=== PATIENT | male | born 1965 | race Two or more races ===

== ENCOUNTER 2017-07-20 23:19 | Emergency (ER) | payer OTHER ==
[~2017-07-20] VITALS: Ht 180.3 cm; Wt 86.2 kg
[2017-07-21 00:51] LABS: Basophils # (auto) 0.1 uL; Basophils % (auto) 1.2 % (0.0-2.0); Eosinophils # (auto) 0.4 uL; Eosinophils % (auto) 3.9 % (0.0-7.0); Hematocrit 46.5 % (41.0-53.0); Hemoglobin 16.1 g/dL (13.5-17.5); Lymphocytes # (auto) 3.5 uL; Lymphocytes % (auto) 32.2 % (10.0-50.0); Mean Corpuscular Hemoglobin 32.1 pg (28.0-32.0); Mean Corpuscular Hgb Conc. 34.6 g/dL (32.0-36.0); Mean Corpuscular Volume 92.7 fL (80.0-100.0); Monocytes % (auto) 9.3 % (0.0-12.0); Neutrophils # (auto) 5.8 uL; Neutrophils % (auto) 53.4 % (37.0-80.0); Nucleated Red Blood Cells % 0.1 %; Platelet Count (auto) 271 10^3/uL (140-450); Red Blood Cells 5.02 10^6/uL (4.5-5.90); White Blood Cell 10.8 10^3/uL (4.4-10.8)
[2017-07-21 01:07] LABS: Alanine Aminotransferase 36 U/L (16-61); Albumin 4.1 g/dL (3.4-5.0); Anion Gap 7 (5-15); Aspartate Aminotransferase 22 U/L (15-37); BUN/Creatinine Ratio 10.5; Blood Urea Nitrogen 9 mg/dL (7-18); Calcium 8.5 mg/dL (8.5-10.1); Carbon Dioxide 23 mmol/L (21-32); Chloride 108 mmol/L (98-107); GFR African American 120 mL/min; GFR Non-African American 99 mL/min; Glucose 102 mg/dL (74-106); Potassium 3.7 mmol/L (3.5-5.1); Sodium 138 mmol/L (136-145)
[2017-07-21 01:12] LABS: Alkaline Phosphatase 145 U/L (45-117); Bilirubin, Total 0.4 mg/dL (0.2-1.0); Total Protein 7.6 g/dL (6.4-8.2)
[2017-07-21] MEDS ORDERED: NALBUPHINE HCL 10 MG/1ml INJECTION IM ONE (02:45)
[2017-07-21 05:23] VITALS: BP 127/73
== END 2017-07-21 05:59 | disposition home or self-care (01) ==
LOC: ER 23:24
DX: S39.012A Strain of muscle, fascia and tendon of lower back, initial encounter (principal); M54.17 Radiculopathy, lumbosacral region; M47.897 Other spondylosis, lumbosacral region; X58.XXXA Exposure to other specified factors, initial encounter; Y93.89 Activity, other specified; Y99.8 Other external cause status; Y92.89 Other specified places as the place of occurrence of the external cause
CPT/HCPCS: 36415; 71045; 72131; 80053; 83880; 84484; 85025; 93005; 96372; 99285; J2300

== ENCOUNTER 2017-07-31 23:58 | Emergency (ER) | payer OTHER ==
[~2017-07-31] VITALS: Ht 180.3 cm; Wt 89.5 kg
[2017-08-01 00:20] VITALS: BP 138/71
== END 2017-08-01 01:40 | disposition left against medical advice (07) ==
LOC: ER 23:58
DX: R51 Headache (principal); Z53.21 Procedure and treatment not carried out due to patient leaving prior to being seen by health care provider
CPT/HCPCS: 70450

== ENCOUNTER 2017-08-03 12:40 | Emergency (ER) | payer OTHER ==
[~2017-08-03] VITALS: Ht 180.3 cm; Wt 86.2 kg
[2017-08-03 12:56] VITALS: BP 105/82
== END 2017-08-03 14:54 | disposition home or self-care (01) ==
LOC: ER 12:40
DX: G89.29 Other chronic pain (principal); M54.5 Low back pain; Z76.0 Encounter for issue of repeat prescription

== ENCOUNTER 2017-08-05 13:34 | Emergency (ER) | payer OTHER ==
[~2017-08-05] VITALS: Ht 180.3 cm; Wt 86.2 kg
[2017-08-05 13:46] VITALS: BP 123/81
== END 2017-08-05 15:50 | disposition left against medical advice (07) ==
LOC: ER 13:34
DX: M54.2 Cervicalgia (principal); Z53.21 Procedure and treatment not carried out due to patient leaving prior to being seen by health care provider

== ENCOUNTER 2024-10-27 23:30 | Emergency (ER) | payer MEDICAID, OTHER ==
[~2024-10-27] VITALS: Ht 180.3 cm; Wt 72.0 kg
[2024-10-27 23:38] VITALS: BP 130/87; PULSE 91; RESP 18; TEMP 98.5; O2SAT 98
--- NOTE | 2024-10-28 01:24 | ED.PDOC ---
History of Present Illness HPI Comments 59 year old male presents to the ED with a chief compliant of colostomy bag leakage onset today. Patient states he noticed colostomy bag is leaking, does not have supplies to change bag at home. Patient is currently having issues with insurance and caser in to obtain supplies. Patient has no further com plaints. Denies abdominal pain, nausea, vomiting, chest pain, shortness of breath, fevers, chills, dysuria, hematuria. No other symptoms or modifying factors present at this time. Chief Complaint: Tube Replacement Time Seen by MD: :15 Reviewed Notes: Medications, Allergies Information Source: Patient Mode of Arrival: Ambulatory Severity: Moderate Timing: Hours Duration: Since onset Prehospital treatment: None Past Medical History PAST MEDICAL HISTORY: Unknown Surgical History: Unknown Family History Family History: Reviewed,noncontributory to illness, No family hx of Cancer, No family hx of DM, No family hx of Heart jack, No family hx of HTN, No family hx ofKidney jack, No family hx of Liver jack, No family hx of Lung jack, No family hx of Stroke Social History Smoker: Non-Smoker Alcohol: Denies ETOH Use Drugs: Denies Drug Use Lives In: Home Constitutional: denies: chills, diaphoresis, fatigue, fever, malaise, sweats, weakness, others EENTM: denies: blurred vision, double vision, ear bleeding, ear discharge, ear drainage, ear pain, ear ringing, eye pain, eye redness, hearing loss, mouth p ain, mouth swelling, nasal discharge, nose bleeding, nose congestion, nose pain, photophobia, tearing, throat pain, throat swelling, voice changes, others Respiratory: denies: cough, hemoptysis, orthopnea, SOB at rest, shortness of br eath, SOB with excertion, stridor, wheezing, others Cardiovascular: denies: chest pain, dizzy spells, diaphoresis, Dyspnea on exertion, edema, irregular heart beat, left arm pain, lightheadedness, palpitations, PND, syncope, others Gastrointestinal: reports: others (colostomy bag leakage); denies: abdomen distended, abdominal pain, blood streaked bowels, constipated, diarrhea, dysphagia, difficulty swallowing, hematemesis, melena, nausea, poor appetite, poor fluid intake, rectal bleeding, rectal pain, vomiting Genitourinary: denies: burning, dysuria, flank pain, frequency, hematuria, incontinence, penile discharge, penile sore, pain, testicle pain, testicle swelling, urgency, others Neurological: denies: dizziness, fainting, headache, left sided numbness, left sided weakness, numbness, paresthesia, pre-existing deficit, right sided numbness, right sided weakness, seizure, speech problems, tingling, tremors, weakness, others Musculoskeletal: denies: back pain, gout, joint pain, joint swelling, muscle pain, muscle stiffness, neck pain, others Integumetry: denies: bruises, change in color, change in hair/nails, dryness, laceration, lesions, lumps, rash, wounds, others Allergic/Immunocompromised: denies: Difficulty Healing, Frequent Infections, Hives, Itching, others Hematologic/Lymphatic: denies: anemia, blood clots, easy bleeding, easy bruising, swollen glands, others Endocrine: denies: excessive hunger, excessive sweating, excessive thirst, excessive urination, flushing, intolerance to cold, intolerance to heat, unexplained weight gain, unexplained weight loss, others Psychiatric: denies: anxiety, bipolar disorder, depression, hopeless, panic disorder, schizophrenia, sleepless, suicidal, others All Other Systems: Reviewed and Negative Physical Exam General Appearance: Normal HEENT: Normal ENT Inspection, Pharynx Normal, TMs Normal Neck: Full Range of Motion, Non-Tender, Normal, Normal Inspection Respiratory: Chest Non-Tender, Lungs Clear, No Accessory Muscle Use, No Respiratory Distress, Normal Breath Sounds Cardiovascular: No Edema, No JVD, No Murmur, No Gallop, Normal Peripheral Pulses, Regular Rate/Rhythm Breast Exam: Deferred Gastrointestinal: No Organomegaly, Non Tender, No Pulsatile Mass, Normal Bowel Sounds, Soft Genitalia: Deferred Pelvic: Deferred Rectal: Deferred Extremities: No calf tenderness, Normal capillary refill, Normal inspection, Normal range of motion, Non-tender, No pedal edema Musculoskeletal : Apperance: Normal Neurologic: Alert, butt trimmer II-XII nml as Tested, No Motor Deficits, Normal Affect, Normal Mood, No Sensory Deficits Cerebellar Function: Normal Reflexes: Normal Skin: Dry, Normal Color, Warm Lymphatic: No Adenopathy Was a procedure done? Was a procedure done?: No Differential Dx Considerations may include: ostomy supplies X-Ray, Labs, Meds, VS Vital Signs Date Time Temp Pulse Resp B/P (MAP) Pulse Ox O2 Delivery O2 Flow Rate FiO2 10/27/24 23:38 98.5 91 18 130/87 (101) 98 98.5 Time of 1ST Reevaluation: 01:45 Reevaluation 1ST: Unchanged Patient Education/Counseling: Diagnosis, Treatment, Prognosis Family Education/Counseling: No Family Present SEPSIS Sepsis Screen Date sepsis recognized/suspect: Oct 27, 2024 Time Sepsis recognized/suspect: 2336 Recent Procedure: No On Antibiotic Therapy: No Respiratory Rate >20: No Heart Rate >90: No Temp<36 C (96.8 F) or >38.3 C: No SBP <90 or MAP <65 mmHG: No New Acute Mental Status Change: No Is the patient on CPAP, BIPAP,: No Vital Signs Date Time Temp Pulse Resp B/P (MAP) Pulse Ox O2 Delivery O2 Flow Rate FiO2 10/27/24 23:38 98.5 91 18 130/87 (101) 98 98.5 Departure 1 Departure Time of Disposition: 01:36 (Patient with the palpitations. EKGs in his tachycardia, chest x-ray is benign, labs are benign) Impression: Primary Impression: Palpitations Disposition: ADMITTED INPATIENT Admit to: Med Surg Condition: Serious Critical Care Note Critical Care Time?: No Stability Stability form required: No Heart Score Heart Score: Heart Score Response (Comments) Value History Slightly Suspicious 0 EKG Normal 0 Age 45-64 1 Risk Factors >3 or Hx ASHD 2 Troponin Normal limit 0 Total 3 I personally scribed for JOVANY LOO MD ([email or web address]) on 10/28/24 at 01:24. Electronically submitted by Laureen Tamayo ([email or web address]). JOVANY LOO MD Oct 28, 2024 01:24
--- NOTE | 2024-10-28 01:38 | ED.PDOC ---
Departure 1 Departure Time of Disposition: 01:37 (Patient's previous chart diagnosis was entered and there. Patient's supplies were refilled. We will discharge patient home) Impression: Primary Impression: Encounter for ostomy care education Disposition: 01 HOME / SELF CARE / HOMELESS Condition: Stable Additional Instructions: It is important follow up with the regular doctor regarding your ostomy care. JOVANY LOO MD Oct 28, 2024 01:38
== END 2024-10-28 02:38 | disposition home or self-care (01) ==
LOC: ER 23:30 → EDUNIT# 23:30 → EDBD 23:30 → ER 10-28 02:38
DX: R00.2 Palpitations (principal); Z93.3 Colostomy status

== ENCOUNTER 2025-01-30 10:31 | Emergency (ER) | payer MEDICAID, OTHER ==
[~2025-01-30] VITALS: Ht 175.3 cm; Wt 75.0 kg
[2025-01-30 10:46] VITALS: BP 130/86; PULSE 90; RESP 22; TEMP 98.6; O2SAT 99
[2025-01-30] MEDS ORDERED: IOHEXOL 300 MG/ML 100ML BOTTLE IJ ONE (18:01)
== END 2025-01-30 12:11 | disposition left against medical advice (07) ==
LOC: EDBD 10:31 → ER 10:31
DX: R10.9 Unspecified abdominal pain (principal); Z79.899 Other long term (current) drug therapy; Z53.21 Procedure and treatment not carried out due to patient leaving prior to being seen by health care provider

== ENCOUNTER 2025-01-30 13:51 | Emergency (ER) | payer MEDICAID ==
[~2025-01-30] VITALS: Ht 180.3 cm; Wt 100.0 kg
--- NOTE | 2025-01-30 15:56 | ED.PDOC ---
GI ASSESSMENT HPI Comments This is a 59 year-old homeless male who presents to the ED via wheelchair with a chief complaint of abdominal pain at colostomy and urostomy bag site with associated symptoms of N/V for x5 days. Patient is dirty and not well kempt in his having difficulties being on the street. Patient's site bandages were all dirty and compromised. Patient reports having a reversal appointment scheduled in a week or two. Patient has no further complaints at this time and otherwise denies diarrhea, constipation, dysuria, fever, or hematemesis. Vital signs were stable at arrival. Chief Complaint: Abdominal Pain Time Seen by MD: 15:42 Primary Care Provider: MIRA JACKSON Reviewed Notes: Nurses Notes, Medications, Allergies Allergies: Coded Allergies: NO KNOWN ALLERGIES (Unverified , 08/24/09) Information Source: Patient Mode of Arrival: Wheelchair Timing: Days Duration: Since onset Prehospital treatment: None Quality: Aching, Cramping, Sharp Vomitus: Bilious, Food Particles, Soft, Watery Severity: Moderate Recent: None Recent Hx of: Other (Patient has a urostomy and colostomy in place.) Associated sign and symptoms: Nausea, Vomiting, Abdominal Pain Past Medical History PAST MEDICAL HISTORY: Unknown Surgical History (Other): Colostomy and urostomy Family History Family History: Reviewed,noncontributory to illness, No family hx of Cancer, No family hx of DM, No family hx of Heart jack, No family hx of HTN, No family hx ofKidney jack, No family hx of Liver jack, No family hx of Lung jack, No family hx of Stroke Social History Smoker: Non-Smoker Alcohol: Heavy Drugs: Marijuana Lives In: Homeless Constitutional: denies: chills, diaphoresis, fatigue, fever, malaise, sweats, weakness, others EENTM: denies: blurred vision, double vision, ear bleeding, ear discharge, ear drainage, ear pain, ear ringing, eye pain, eye redness, hearing loss, mouth pain, mouth swelling, nasal discharge, nose bleeding, nose congestion, nose pain, photophobia, tearing, throat pain, throat swelling, voice changes, others Respiratory: denies: cough, hemoptysis, orthopnea, SOB at rest, shortness of breath, SOB with excertion, stridor, wheezing, others Cardiovascular: denies: chest pain, dizzy spells, diaphoresis, Dyspnea on exertion, edema, irregular heart beat, left arm pain, lightheadedness, palpitations, PND, syncope, others Gastrointestinal: reports: abdominal pain, nausea, vomiting; denies: abdomen distended, blood streaked bowels, constipated, diarrhea, dysphagia, difficulty swallowing, hematemesis, melena, poor appetite, poor fluid intake, rectal bleeding, rectal pain, others Genitourinary: denies: burning, dysuria, flank pain, frequency, hematuria, incontinence, penile discharge, penile sore, pain, testicle pain, testicle swelling, urgency, others Neurological: denies: dizziness, fainting, headache, left sided numbness, left sided weakness, numbness, paresthesia, pre-existing deficit, right sided numbness, right sided weakness, seizure, speech problems, tingling, tremors, weakness, others Musculoskeletal: denies: back pain, gout, joint pain, joint swelling, muscle pain, muscle stiffness, neck pain, others Integumetry: denies: bruises, change in color, change in hair/nails, dryness, laceration, lesions, lumps, rash, wounds, others Allergic/Immunocompromised: denies: Difficulty Healing, Frequent Infections, Hives, Itching, others Hematologic/Lymphatic: denies: anemia, blood clots, easy bleeding, easy bruising, swollen glands, others Endocrine: denies: excessive hunger, excessive sweating, excessive thirst, excessive urination, flushing, intolerance to cold, intolerance to heat, unexplained weight gain, unexplained weight loss, others Psychiatric: denies: anxiety, bipolar disorder, depression, hopeless, panic disorder, schizophrenia, sleepless, suicidal, others All Other Systems: Reviewed and Negative Physical Exam General Appearance: Moderate Distress (Due to abdominal pain concerns.), Normal HEENT: Normal ENT Inspection, Pharynx Normal, TMs Normal Neck: Full Range of Motion, Non-Tender, Normal, Normal Inspection Respiratory: Chest Non-Tender, Lungs Clear, No Accessory Muscle Use, No Respiratory Distress, Normal Breath Sounds Cardiovascular: No Edema, No JVD, No Murmur, No Gallop, Normal Peripheral Pulses, Regular Rate/Rhythm Breast Exam: Deferred Gastrointestinal: Other (Patient is a right-sided urostomy site that appears inflamed. Left-sided lower quadrant colostomy reveals some mild erythema and edema. Patient states reduced stool burden.) Genitalia: Deferred Pelvic: Deferred Rectal: Deferred Extremities: No calf tenderness, Normal capillary refill, Non-tender Neurologic: Alert Cerebellar Function: NOT DONE Reflexes: NOT DONE Skin: Dry, Normal Color, Warm Lymphatic: No Adenopathy Was a procedure done? Was a procedure done?: No GI differential Dx Differential Diagnosis: Bowel Obstruction, Constipation, Gastritis/PUD, Gastroenteritis, Inflammatory BD, Dehydration, Bacterial, Parasitic, Viral X-Ray, Labs, Meds, VS Vital Signs Date Time Temp Pulse Resp B/P (MAP) Pulse Ox O2 Delivery O2 Flow Rate FiO2 01/30/25 13:56 97.9 97 18 108/52 98 97.9 Lab Test 01/30/25 15:58 01/30/25 15:43 Range/Units White Blood Count 7.6 4.4-10.8 10^3/uL Red Blood Count 4.32 L 4.5-5.90 10^6/uL Hemoglobin 11.9 L 13.5-17.5 g/dL Hematocrit 36.2 L 41.0-53.0 % Mean Corpuscular Volume 83.7 80.0-100.0 fL Mean Corpuscular Hemoglobin 27.6 L 28.0-32.0 pg Mean Corpuscular Hemoglobin Concent 33.0 32.0-36.0 g/dL Red Cell Distribution Width 19.4 H 11.8-14.3 % Platelet Count 387 140-450 10^3/uL Mean Platelet Volume 7.8 6.9-10.8 fL Neutrophils (%) (Auto) 67.9 37.0-80.0 % Lymphocytes (%) (Auto) 20.7 10.0-50.0 % Monocytes (%) (Auto) 8.6 0.0-12.0 % Eosinophils (%) (Auto) 1.8 0.0-7.0 % Basophils (%) (Auto) 1.0 0.0-2.0 % Neutrophils # (Auto) 5.2 1.6-8.6 10 ^3/uL Lymphocytes # (Auto) 1.6 0.4-5.4 10 ^3/uL Monocytes # (Auto) 0.7 0-1.3 10 ^3/uL Eosinophils # (Auto) 0.1 0-0.8 10 ^3/uL Basophils # (Auto) 0.1 0-0.2 10 ^3/uL Nucleated Red Blood Cells 0.0 % Sodium Level 138 136-145 mmol/L Potassium Level 3.5 3.5-5.1 mmol/L Chloride Level 104 98-107 mmol/L Carbon Dioxide Level 23 20-31 mmol/L Anion Gap 11 5-15 Blood Urea Nitrogen 10 9-23 mg/dL Creatinine 0.96 0.700-1.30 mg/dL Glomerular Filtration Rate Calc 90 >90 mL/min BUN/Creatinine Ratio 10.4 10.0-20.0 Serum Glucose 104 74-106 mg/dL Calcium Level 9.4 8.7-10.4 mg/dL Lipase 35 12-53 U/L Urine Color Yellow Yellow Urine Clarity Clear Clear Urine pH 6.5 5.0-9.0 Urine Specific [place] > 1.050 H 1.001-1.035 Urine Protein 1+ H Negative Urine Ketones Negative Negative Urine Blood Negative Negative /uL Urine Nitrite Negative Negative Urine Bilirubin Negative Negative Urine Urobilinogen Normal Negative mg/dL Urine Leukocyte Esterase Negative Negative /uL Urine RBC 1 0 - 3 /hpf Urine Microscopic WBC 1 0-3 /HPF Urine Squamous Epithelial Cells Few <5 /hpf Urine Bacteria None seen None Seen /hpf Urine Mucus Few None Seen Urine Glucose Normal Normal mg/dL Current Medications Medications (Trade) Dose Ordered Sig/Shabana Route Start Time Stop Time Status Last Admin Ondansetron HCl (Zofran) 4 mg ONCE ONCE IV 01/30/25 15:45 01/30/25 15:46 DC 01/30/25 17:33 Acetaminophen/ Hydrocodone Bitart ([place] 10/325MG Tab) 1 tab ONCE ONCE PO 01/30/25 15:45 01/30/25 15:46 DC 01/30/25 17:[address] [address] Ph: [phone] DIAGNOSTIC IMAGING Diagnostic Imaging Report : [id number] Signed PATIENT: RIC SHARMA,GLENROYOACCT: [id number] UNIT: [id number] : 1965 LOC: ER ROOM / BED: / AGE / SEX: 59 / M ADM STATUS: REG ER SERVICE [id number] ORDERING PHYSICIAN: MARCELINO LANCASTER PAC PROCEDURE(s): ABPLIV - CT AB PEL WITH IV CON ONLY REASON: Evaluate urostomy and colostomy. ORDER NUMBER(s): [id number], ACCESSION NUMBER(s): [id number] EXAM: CT CT AB PEL WITH IV CON ONLY HISTORY: Evaluate urostomy and colostomy. TECHNIQUE: Volumetric multidetector CT images of the abdomen and pelvis were obtained after the administration of intravenous contrast. All CT scans at this facility use dose modulation, iterative reconstruction, and/or weight based dosing when appropriate to reduce radiation dose to as low as reasonably achievable. COMPARISON: CT ABD/PEL W - IV on DOS: 05/10/24 FINDINGS: [LOWER CHEST]: The partially visualized lung bases are clear without a pleural effusion. [LIVER]: Small focal, well circumscribed hepatic hypodensities, which are nonspecific but statistically most likely represent small hepatic cysts. [GALLBLADDER AND BILIARY TREE]: Right anterior pigtail drainage catheter in place with the adjacent persistent small possible fluid collection measuring 2.2 x 3.3 cm. Pigtail is located in the gallbladder fossa. [SPLEEN]: Unremarkable. [PANCREAS]: Unremarkable. [ADRENAL GLANDS]: Unremarkable [KIDNEYS]: No hydronephrosis. No nephroureterolithiasis. No suspicious focal lesion. [BLADDER]: Tube [REPRODUCTIVE ORGANS]: Unremarkable. [BOWEL/MESENTERY]: Stomach is decompressed. Left lower quadrant ostomy. Inconspicuous air-fluid levels in bowel loops in the lower mid abdomen to right lower quadrant with air-fluid levels measuring up to 3.6 cm. Correlate for ileus versus partial bowel obstruction minimal stool burden. [ASCITES]: Absent [LYMPHADENOPATHY]: No pathologically enlarged lymph nodes by CT size criteria [VASCULATURE]: No aneurysmal dilatation. [ABDOMINAL WALL]: Unremarkable. [MUSCULOSKELETAL]: Nondisplaced left L3 transverse process fracture. Multifocal degenerative change of the visualized spine. posterior decompression L4-L5 with intervertebral disc spacers. Inconspicuous subsidence into the inferior endplate of L4 and superior endplate of L5. IMPRESSION: 1. Inconspicuous air-fluid levels in bowel loops in the lower mid abdomen to right lower quadrant with distal small bowel loops measuring up to 3.6 cm. Correlate for ileus versus partial bowel obstruction. 2. Nondisplaced left L3 transverse process fracture. 3. Left lower quadrant ostomy appears intact. 4. Right anterior pigtail drainage catheter in place with the adjacent persistent small possible fluid collection measuring 2.2 x 3.3 cm. 5. Poor evaluation of the the reported urostomy. Consider further evaluation with CT urogram. X-Ray, Labs, Meds, VS Comment All studies performed the ED were evaluated by me personally. Serum laboratories were remarkable for a mild anemia. Urinalysis was unremarkable for any systemic concerns. CT of the abdomen was revealing for probable small bowel obstruction. Imaging findings along with the patient discussion is odalis cative of an SBO. Patient will be admitted for pain management as well as long- term management of GI concerns. Images Reviewed?: Images reviewed and evaluated by me Time of 1ST Reevaluation: 20:36 Reevaluation 1ST: Improved Consultation: PCP Patient Education/Counseling: Diagnosis, Treatment Family Education/Counseling: Diagnosis, Treatment, No Family Present SEPSIS Sepsis Screen Date sepsis recognized/suspect: Jan 30, 2025 Time Sepsis recognized/suspect: 1358 Recent Procedure: No On Antibiotic Therapy: No Respiratory Rate >20: No Heart Rate >90: Yes Temp<36 C (96.8 F) or >38.3 C: No SBP <90 or MAP <65 mmHG: No New Acute Mental Status Change: No Is the patient on CPAP, BIPAP,: No Physician Orders Ct Ab Pel With Iv Con Only (01/30/25 15:43) Blood Culture (01/30/25 15:43) Urine Bacterial Culture (01/30/25 15:43) Heplock Iv (01/30/25 ) Vital Signs Date Time Temp Pulse Resp B/P (MAP) Pulse Ox O2 Delivery O2 Flow Rate FiO2 01/30/25 13:56 97.9 97 18 108/52 98 97.9 Laboratory Tests Test 01/30/25 15:58 White Blood Count 7.6 10^3/uL (4.4-10.8) Medications Medications Dose Ordered Sig/Shabana Route Start Time Stop Time Status Last Admin Dose Admin Acetaminophen/ Hydrocodone Bitart 1 tab ONCE ONCE PO 01/30/25 15:45 01/30/25 15:46 DC 01/30/25 17:32 Ondansetron HCl 4 mg ONCE ONCE IV 01/30/25 15:45 01/30/25 15:46 DC 01/30/25 17:33 Departure 1 Departure Time of Disposition: 20:36 Impression: Primary Impression: Small bowel obstruction Disposition: ADMITTED INPATIENT Condition: Fair Discharged With: Self Critical Care Note Critical Care Time?: No Stability Stability form required: No Heart Score Heart Score: Heart Score Response (Comments) Value History N/A 0 EKG N/A 0 Age N/A 0 Risk Factors N/A 0 Troponin N/A 0 Total 0 I personally scribed for MARCELINO LANCASTER PAC ([email or web address]) on 01/30/25 at 15:56. Electronically submitted by Shanell Sullivan ([employer]). I personally scribed for MARCELINO LANCASTER PAC ([email or web address]) on 01/30/25 at 19:43. Electronically submitted by Shanell Sullivan ([employer]). I personally scribed for MARCELINO LANCASTER PAC ([email or web address]) on 01/30/25 at 20:27. Electronically submitted by Shanell Sullivan ([employer]). MARCELINO LANCASTER PAC Jan 30, 2025 15:56
[2025-01-30 16:19] LABS: Hematocrit 36.2 % (41.0-53.0); Hemoglobin 11.9 g/dL (13.5-17.5); Mean Corpuscular Hemoglobin 27.6 pg (28.0-32.0); Mean Corpuscular Volume 83.7 fL (80.0-100.0); Nucleated Red Blood Cells % 0.0 %
[2025-01-30 16:30] LABS: Chloride 104 mmol/L (98-107); Potassium 3.5 mmol/L (3.5-5.1); Sodium 138 mmol/L (136-145)
[2025-01-30 16:31] LABS: Anion Gap 11 (5-15); Calcium 9.4 mg/dL (8.7-10.4); Carbon Dioxide 23 mmol/L (20-31)
[2025-01-30 16:36] LABS: BUN/Creatinine Ratio 10.4 (10.0-20.0); Blood Urea Nitrogen 10 mg/dL (9-23); Glucose 104 mg/dL (74-106); Lipase 35 U/L (12-53)
[2025-01-30] MEDS: HYDROcodone-ACET 10/325MG TAB PO ONE ×2 (17:32→21:45)
[2025-01-30] MEDS: ONDANSETRON HCL 4 MG/2 ML VIAL IV ONE (17:33)
--- NOTE | 2025-01-30 18:36 | DVH ---
EXAM: CT CT AB PEL WITH IV CON ONLY HISTORY: Evaluate urostomy and colostomy. TECHNIQUE: Volumetric multidetector CT images of the abdomen and pelvis were obtained after the admin istration of intravenous contrast. All CT scans at this facility use dose modulation, iterative recon struction, and/or weight based dosing when appropriate to reduce radiation dose to as low as reasonab ly achievable. COMPARISON: CT ABD/PEL W - IV on DOS: 05/10/24 FINDINGS: [LOWER CHEST]: The partially visualized lung bases are clear without a pleural effusion. [LIVER]: Small focal, well circumscribed hepatic hypodensities, which are nonspecific but statistical ly most likely represent small hepatic cysts. [GALLBLADDER AND BILIARY TREE]: Right anterior pigtail drainage catheter in place with the adjacent p ersistent small possible fluid collection measuring 2.2 x 3.3 cm. Pigtail is located in the gallbladd er fossa. [SPLEEN]: Unremarkable. [PANCREAS]: Unremarkable. [ADRENAL GLANDS]: Unremarkable [KIDNEYS]: No hydronephrosis. No nephroureterolithiasis. No suspicious focal lesion. [BLADDER]: Tube [REPRODUCTIVE ORGANS]: Unremarkable. [BOWEL/MESENTERY]: Stomach is decompressed. Left lower quadrant ostomy. Inconspicuous air-fluid level s in bowel loops in the lower mid abdomen to right lower quadrant with air-fluid levels measuring up to 3.6 cm. Correlate for ileus versus partial bowel obstruction minimal stool burden. [ASCITES]: Absent [LYMPHADENOPATHY]: No pathologically enlarged lymph nodes by CT size criteria [VASCULATURE]: No aneurysmal dilatation. [ABDOMINAL WALL]: Unremarkable. [MUSCULOSKELETAL]: Nondisplaced left L3 transverse process fracture. Multifocal degenerative change o f the visualized spine. posterior decompression L4-L5 with intervertebral disc spacers. Inconspicuou s subsidence into the inferior endplate of L4 and superior endplate of L5. IMPRESSION: 1. Inconspicuous air-fluid levels in bowel loops in the lower mid abdomen to right lower quadrant wit h distal small bowel loops measuring up to 3.6 cm. Correlate for ileus versus partial bowel obstructi on. 2. Nondisplaced left L3 transverse process fracture. 3. Left lower quadrant ostomy appears intact. 4. Right anterior pigtail drainage catheter in place with the adjacent persistent small possible flui d collection measuring 2.2 x 3.3 cm. 5. Poor evaluation of the the reported urostomy. Consider further evaluation with CT urogram.
[2025-01-30 20:10] LABS: Urine Protein, UAD 1+ (Negative)
[2025-01-30 21:18] VITALS: PULSE 96; RESP 20; O2SAT 94
[2025-01-30 21:24] VITALS: BP 119/79; PULSE 90; RESP 20; TEMP 97.9; O2SAT 100
== END 2025-01-31 03:47 | disposition left against medical advice (07) ==
LOC: ER 13:51
DX: K56.609 Unspecified intestinal obstruction, unspecified as to partial versus complete obstruction (principal); Z98.890 Other specified postprocedural states
CPT/HCPCS: 36415; 74177; 80048; 81001; 83690; 85025; 87040; 87086; 96374; 99285; J2405